=== PATIENT | male | born 1975 | race Caucasian/White ===

== ENCOUNTER 2021-01-15 09:31 | Emergency (ER) | payer OTHER ==
[~2021-01-15] VITALS: Ht 182.9 cm; Wt 120.2 kg
[2021-01-15] MEDS ORDERED: OMEPRAZOLE40 MG PO (09:47)
[2021-01-15] MEDS ORDERED: METFORMIN HCL500 MG PO (09:47)
[2021-01-15] MEDS ORDERED: LIPITOR 40 MG T40 M1 PO (09:48)
[2021-01-15] MEDS ORDERED: LISINOPRIL20 MG PO (09:48)
[2021-01-15] MEDS ORDERED: PREDNISONE50 MG PO (10:07)
[2021-01-15] MEDS ORDERED: HYDROCODON-ACE1 EAC7 PO (10:07)
[2021-01-15 10:56] VITALS: BP 121/89
== END 2021-01-15 10:58 | disposition home or self-care (01) ==
LOC: M.ERS 09:31
DX: M54.12 Radiculopathy, cervical region (principal); M79.18 Myalgia, other site; E11.9 Type 2 diabetes mellitus without complications; I10 Essential (primary) hypertension; K21.9 Gastro-esophageal reflux disease without esophagitis; E78.00 Pure hypercholesterolemia, unspecified; Z79.899 Other long term (current) drug therapy